=== PATIENT | female | born 2000 ===

== ENCOUNTER 2022-06-20 07:05 | Inpatient (IN) | payer OTHER ==
[~2022-06-20] VITALS: Ht 160 cm; Wt 77.6 kg
[2022-06-20] MEDS ORDERED: IRON325 MG PO (08:02)
[2022-06-20] MEDS ORDERED: PRENATAL TABLE1 EAC1 PO (08:03)
[2022-06-20] MEDS ORDERED: SYNTHROID150 MCG PO (08:04)
== END 2022-06-22 12:56 | disposition home or self-care (01) | DRG 807 ==
LOC: LDR 07:05 → OB/GYN 23:19
PROVIDERS: ADMIT Obstetrics & Gynecology; ATTEND Obstetrics & Gynecology
PROC: 10E0XZZ Delivery of Products of Conception, External Approach (ICD-10-PCS; principal; 2022-06-20)
PROC: 0KQM0ZZ Repair Perineum Muscle, Open Approach (ICD-10-PCS; 2022-06-20)
PROC: 4A1HXCZ Monitoring of Products of Conception, Cardiac Rate, External Approach (ICD-10-PCS; 2022-06-20)
DX: O70.1 Second degree perineal laceration during delivery (principal); Z37.0 Single live birth; O99.824 Streptococcus B carrier state complicating childbirth; Z3A.39 39 weeks gestation of pregnancy; Z20.822 Contact with and (suspected) exposure to COVID-19